=== PATIENT | female | born 1995 | race Caucasian/White ===

== ENCOUNTER 2020-03-20 16:49 | Emergency (ER) | payer MEDICAID ==
[~2020-03-20] VITALS: Ht 154.9 cm; Wt 54.4 kg
[2020-03-20 17:05] VITALS: BP 135/90
== END 2020-03-20 18:19 | disposition home or self-care (01) ==
LOC: ER 16:49
DX: R51 Headache (principal)
CPT/HCPCS: 70450

== ENCOUNTER 2021-04-16 14:06 | Emergency (ER) | payer MEDICAID ==
[~2021-04-16] VITALS: Ht 160 cm; Wt 55.8 kg
[2021-04-16 14:07] VITALS: BP 139/79
[2021-04-16] MEDS ORDERED: cefTRIAXone SOD 1,000 MG VL IM ONE (14:45)
== END 2021-04-16 15:14 | disposition home or self-care (01) ==
LOC: ER 14:06
DX: J03.90 Acute tonsillitis, unspecified (principal)
CPT/HCPCS: 96372; 99283; J0696

== ENCOUNTER 2021-06-13 09:52 | Emergency (ER) | payer MEDICAID ==
[~2021-06-13] VITALS: Ht 157.5 cm; Wt 56.7 kg
[2021-06-13 09:53] VITALS: BP 120/78
[2021-06-13 10:23] LABS: Urine Bacteria FEW /hpf (None Seen); Urine Blood Negative /uL (Negative); Urine Mucus FEW (None Seen); Urine Specific Gravity 1.023 (1.001-1.035); Urine WBC 14 /hpf (0 - 5)
[2021-06-13] MEDS ORDERED: cefTRIAXone SOD 1,000 MG VL IM ONE (11:15)
== END 2021-06-13 12:27 | disposition home or self-care (01) ==
LOC: ER 09:52
DX: J06.9 Acute upper respiratory infection, unspecified (principal); N39.0 Urinary tract infection, site not specified; R51.9 Headache, unspecified; Z20.822 Contact with and (suspected) exposure to COVID-19
CPT/HCPCS: 36415; 71045; 81001; 81025; 87426

== ENCOUNTER 2023-07-15 17:48 | Emergency (ER) | payer MEDICAID ==
[~2023-07-15] VITALS: Ht 167.6 cm; Wt 51.9 kg
[2023-07-15 17:54] VITALS: BP 124/83; PULSE 71; RESP 16; O2SAT 98
[2023-07-15 18:25] LABS: Basophils # (auto) 0.1 10 ^3/uL (0-0.2); Basophils % (auto) 0.9 % (0.0-2.0); Eosinophils # (auto) 0.2 10 ^3/uL (0-0.8); Eosinophils % (auto) 2.6 % (0.0-7.0); Hematocrit 39.1 % (36.0-46.0); Lymphocytes # (auto) 2.3 10 ^3/uL (0.4-5.4); Lymphocytes % (auto) 32.8 % (10.0-50.0); Mean Corpuscular Hemoglobin 27.2 pg (28.0-32.0); Mean Corpuscular Hgb Conc. 33.1 g/dL (32.0-36.0); Mean Corpuscular Volume 82.1 fL (80.0-100.0); Monocytes # (auto) 0.5 10 ^3/uL (0-1.3); Monocytes % (auto) 6.5 % (0.0-12.0); Neutrophils % (auto) 57.2 % (37.0-80.0); Red Blood Cells 4.76 10^6/uL (4.0-5.20); Red Cell Distribution Width 15.1 % (11.8-14.3)
[2023-07-15 18:42] LABS: Albumin 4.7 g/dL (3.2-4.8); Alkaline Phosphatase 69 U/L (46-116); Anion Gap 8.4 (5-15); Bilirubin, Total 0.9 mg/dL (0.2-1.0); Blood Urea Nitrogen 9 mg/dL (9-23); Calcium 9.3 mg/dL (8.7-10.4); Carbon Dioxide 22.6 mmol/L (20-30); Chloride 106 mmol/L (98-107); Glucose 100 mg/dL (74-106); Potassium 3.5 mmol/L (3.5-5.1); Sodium 137 mmol/L (136-145); Total Protein 7.8 g/dL (5.7-8.2)
[2023-07-15 18:43] LABS: Urine Bacteria NONE SEEN /hpf (None Seen); Urine Blood TRACE /uL (Negative); Urine Clarity Clear (Clear); Urine Color Colorless (Yellow); Urine Protein, UAD Negative (Negative); Urine Specific Gravity 1.015 (1.001-1.035); Urine Urobilinogen Normal (Negative); Urine WBC 6 /hpf (0 - 5); Urine pH 5.5 (5.0-8.0)
[2023-07-15] MEDS ORDERED: PANT40TA2 PO (19:59)
[2023-07-15] MEDS ORDERED: ZOFR4T PO (19:59)
== END 2023-07-16 00:02 | disposition home or self-care (01) ==
LOC: ER 17:48
DX: K29.00 Acute gastritis without bleeding (principal); R10.2 Pelvic and perineal pain; Z79.899 Other long term (current) drug therapy
CPT/HCPCS: 36415; 76705; 80053; 81001; 84702; 85025

== ENCOUNTER 2023-10-22 18:37 | Emergency (ER) | payer MEDICAID ==
[~2023-10-22] VITALS: Ht 157.5 cm; Wt 58.4 kg
[~2023-10-22 18:37] MED LIST: PANT40TA2 PO; ZOFR4T PO
[2023-10-22 22:30] LABS: Urine Bacteria FEW /hpf (None Seen); Urine Blood Negative /uL (Negative); Urine Clarity Clear (Clear); Urine Color Colorless (Yellow); Urine Protein, UAD Negative (Negative); Urine Specific Gravity 1.016 (1.001-1.035); Urine Urobilinogen Normal (Negative); Urine WBC 32 /hpf (0 - 5)
[2023-10-22] MEDS ORDERED: cefTRIAXone SOD 1,000 MG VL IM ONE (22:45)
[2023-10-22] MEDS ORDERED: PHENAZOPYRIDINE HCL 100 MG TAB PO ONE (22:45)
[2023-10-22] MEDS ORDERED: PHEN-922 PO (22:49)
[2023-10-22] MEDS ORDERED: CEPH500C PO (22:49)
[2023-10-22 23:03] VITALS: BP 132/53; PULSE 70; RESP 17; TEMP 98.6; O2SAT 98
== END 2023-10-22 23:17 | disposition home or self-care (01) ==
LOC: ER 18:37
DX: N39.0 Urinary tract infection, site not specified (principal)
CPT/HCPCS: 81001; 81025; 96372; 99283; J0696